=== PATIENT | male | born 1960 | race African-American/Black ===

== ENCOUNTER 2019-03-04 22:05 | Emergency (ER) | payer BC, OTHER ==
[2019-03-04 22:14] VITALS: BP 131/90; PULSE 100; TEMP 97.5; BMI 27.3
[2019-03-04] MEDS ORDERED: ALPRAZolam 1 MG TABLET PO PRN (22:40)
[2019-03-04] MEDS ORDERED: ALPRAZolam 0.25 MG TABLET PO STA (22:54)
--- NOTE | 2019-03-04 22:57 | PDOC ---
Documentation entered by Yolie Collins SCRIBE, acting as scribe for Caleb Calderon MD. Caleb Calderon MD: This documentation has been prepared by the janelibe, Yolie Collins SCRIBE, under my direction and personally reviewed by me in its entirety. I confirm that the documentation accurately reflects all work , treatment, procedures, and medical decision making performed by me. History of Present Illness - General Chief Complaint: Psychiatric Stated Complaint: ANXIETY Time Seen by Provider: 03/04/19 22:06 History Source: Patient Exam Limitations: No Limitations - History of Present Illness Initial Comments: 03/04/19 22:25 The patient is a 58-year-old male with a past medical history significant for anxiety presents to the emergency department with shortness of breathing and chronic cough. The patient reports since June, hes been having a persistent, nonproductive cough, associated with shortness of breath. The patient reports hes been taking OTC supplements, without relief. The patient reports following up with PCP about a month ago, who did blood work and chest X- ray. The patient reports his PCP told him that the X-ray was significant for an enlarged large and was given medication. The patient was instructed to follow up ; however, the patient denies following up. The patient reports his PCP told him that the symptoms could also be anxiety related. The patient does reports being anxious at times, states its aggravated with stress from personal family matters and from smelling chemicals that clean bathroom, reports relief when he is driving by himself. Denies chest pain, fever, headache, abdominal pain. PAST MEDICAL HISTORY: no significant history PAST SURGICAL HISTORY: no significant history FAMILY HISTORY: no pertinent history SOCIAL HISTORY: Pt lives with family and is unemployed. MEDICATIONS: reviewed ALLERGIES: As per nursing notes ROS: General: No fevers or chills, no weakness, no weight loss HEENT: No change in vision. No sore throat,. No ear pain CardioVascular: No chest pain or shortness of breath Respiratory:+chronic cough and shortness of breath. No wheezing. Gastrointestinal: no nausea, vomiting, diarrhea or constipation, No rectal bleeding Genitourinary: No dysuria, hematuria, or frequency Musculoskeletal: No joint or muscle pain or swelling Neurologic: No headache, vertigo, dizziness or loss of consciousness Psychiatric: nor depression Skin: No rashes or easy bruising Endocrine: no increased thirst or abnormal weight change Allergic: no skin or latex allergy All other systems reviewed and normal Exam: General: +very anxious, noted to hyperventilate when discussing personal matter. Well-nourished well-developed individual, no acute distress HEENT: Throat: Normal, tonsils normal, no erythema or exudate Neck: Supple, no meningeal signs, no lymphadenopathy Eyes::Pupils equal reactive and round, extraocular motion intact Chest: Nontender to palpation Cardiac: S1-S2 normal, regular rate and rhythm, no murmurs rubs or gallops Respiratory: Lungs clear to auscultation bilateral Abdomen: Soft, nondistended, normal bowel sounds, nontender to palpation diffusely Extremities: Warm, dry, no cyanosis, clubbing, or edema Skin: No rashes Neuro: Alert and oriented x3, nonfocal exam, grossly intact, normal gait Psych: Normal mood and affect 03/04/19 23:01 Assessment and plan: This is a 58-year-old male who comes in complaining of approximately a months of a chronic cough. Patient saw an urgent care doctor approximately one month ago and was told he had an enlarged heart and was told that he should follow up with his primary care doctor and get a workup. Patient never followed through and does not have any additional workup done. At the time he was seen had a workup as per patient including laboratory work and EKG all of which were normal. Patient does have an anxiety component to his shortness of breath as well as when he started talking about personal issues he became very anxious and started hyperventilating. Patient had a chest x-ray didn't did show an enlarged heart otherwise no acute pathology. Patient discharged home will follow-up with his primary care doctor in the morning. Past History - Past Medical History Allergies/Adverse Reactions: Allergies Allergy/AdvReac Type Severity Reaction Status Date / Time No Known Allergies Allergy Verified 11/14/12 15:04 Home Medications: Ambulatory Orders Aspirin [ASA -] 81 mg PO DAILY 03/04/19 Panax Ginseng Root Extract [Ginseng Extract] 100 mg PO 03/04/19 - Immunization History Td Vaccination: No (UNKNOWN) - Suicide/Smoking/Psychosocial Hx Smoking Status: Yes Smoking History: Former smoker Number of Cigarettes Smoked Daily: 0 *Physical Exam - Vital Signs Last Vital Signs Temp Pulse Resp BP Pulse Ox 97.5 F L 100 H 16 131/90 100 03/04/19 22:08 03/04/19 22:08 03/04/19 22:08 03/04/19 22:08 03/04/19 22:08 ED Treatment Course - RADIOLOGY Radiology Studies Ordered: Category Date Time Status CHEST X-RAY PORTABLE* [RAD] Stat Radiology 03/04/19 22:16 Taken *DC/Admit/Observation/Transfer Diagnosis at time of Disposition: Chronic cough - Discharge Dispostion Disposition: HOME Condition at time of disposition: Good Decision to Admit order: No - Referrals - Patient Instructions Additional Instructions: It is very important that you call your primary care doctor in the morning and get an appointment to get your enlarged heart worked up. Return to the emergency department immediately with ANY new, persistent or worsening symptoms. Continue any medications as previously prescribed by your physician. You should follow up with your primary doctor as soon as possible regarding today's emergency department visit. . Please make sure your doctor reviews the results of your emergency evaluation. Thank you for coming to the Emergency Department today for your care. It was a pleasure to see you today. Please note that your evaluation is INCOMPLETE until you follow-up with your doctor. - Post Discharge Activity
[2019-03-04] MEDS ORDERED: ALPRAZolam 0.25 MG TABLET ONE (23:04)
== END 2019-03-04 23:10 | disposition home or self-care (01) ==
LOC: FER 22:05
DX: R05 Cough (principal); Z87.891 Personal history of nicotine dependence; F41.9 Anxiety disorder, unspecified
CPT/HCPCS: 71045-TC-FY; 99282-25